=== PATIENT | female | born 1980 | race American Indian/Alaskan Native ===

== ENCOUNTER 2019-04-08 19:42 | Emergency (ER) | payer SELFPAY ==
[2019-04-08 20:06] VITALS: BP 118/68
[2019-04-08] MEDS ORDERED: IBUPROFEN PO ONE (20:08)
--- NOTE | 2019-04-08 20:08 | Event Note ---
ED Screening Note ED Screening Note: lower molar pain was suppose to have pulled pmh none rx none psh none lmp 8-12 This initial assessment/diagnostic orders/clinical plan/treatment(s) is/are subject to change based on patients health status, clinical progression and re- assessment by fellow clinical providers in the ED. Further treatment and workup at subsequent clinical providers discretion. Patient/guardian urged not to elope from the ED as their condition may be serious if not clinically assessed and managed. Initial orders include: ACC
[2019-04-08] MEDS ORDERED: IBUPROFEN ONE (22:18)
--- NOTE | 2019-04-08 22:23 | Emergency Department Report ---
ED ENT HPI - General Chief complaint: Dental/Oral Stated complaint: TOOTHACHE Time Seen by Provider: 04/08/19 20:06 Source: patient Mode of arrival: Ambulatory Limitations: No Limitations - History of Present Illness Initial comments: pt is a 38 y/o aaf with hx of dental pain who presents for dental pain x 1 week pt denies fever or chills no n/v no throat or ear pain, symptoms exacerbated by po intake hot and cold stimuli, relieved by nothing. MD complaint: tooth pain Location: tooth # (27) Severity: moderate Severity scale (0 -10): 5 Quality: aching Consistency: constant Improves with: none Worsens with: eating Context- Dental: poor dental care Associated Symptoms: toothache - Related Data Previous Rx's Medication Instructions Recorded Last Taken Type Amoxicillin [Trimox CAP] 500 mg PO Q8H 10 Days #30 capsule 04/08/19 Unknown Rx Chlorhexidine Mouthwash [Peridex] 15 ml MM BID #1 bottle 04/08/19 Unknown Rx traMADol [Ultram] 50 mg PO Q6HR PRN #12 tablet 04/08/19 Unknown Rx Allergies Allergy/AdvReac Type Severity Reaction Status Date / Time No Known Allergies Allergy Verified 04/08/19 20:08 ED Dental HPI - General Chief complaint: Dental/Oral Stated complaint: TOOTHACHE Time Seen by Provider: 04/08/19 20:06 Source: patient Mode of arrival: Ambulatory Limitations: No Limitations - Related Data Previous Rx's Medication Instructions Recorded Last Taken Type Amoxicillin [Trimox CAP] 500 mg PO Q8H 10 Days #30 capsule 04/08/19 Unknown Rx Chlorhexidine Mouthwash [Peridex] 15 ml MM BID #1 bottle 04/08/19 Unknown Rx traMADol [Ultram] 50 mg PO Q6HR PRN #12 tablet 04/08/19 Unknown Rx Allergies Allergy/AdvReac Type Severity Reaction Status Date / Time No Known Allergies Allergy Verified 04/08/19 20:08 ED Review of Systems ROS: Stated complaint: TOOTHACHE Other details as noted in HPI Constitutional: denies: chills, fever Eyes: denies: eye pain, eye discharge, vision change ENT: dental pain. denies: ear pain, throat pain Respiratory: denies: cough, shortness of breath, wheezing Cardiovascular: denies: chest pain, palpitations Endocrine: no symptoms reported Gastrointestinal: as per HPI Genitourinary: denies: urgency, dysuria, discharge Musculoskeletal: denies: back pain, joint swelling, arthralgia Skin: denies: rash, lesions Neurological: denies: headache, weakness, paresthesias Psychiatric: denies: anxiety, depression Hematological/Lymphatic: as per HPI ED Past Medical Hx - Past Medical History Previous Medical History?: No - Surgical History Past Surgical History?: Yes Additional Surgical History: - Social History Smoking Status: Never Smoker Substance Use Type: None - Medications Home Medications: Home Medications Medication Instructions Recorded Confirmed Last Taken Type Amoxicillin [Trimox CAP] 500 mg PO Q8H 10 Days #30 capsule 04/08/19 Unknown Rx Chlorhexidine Mouthwash [Peridex] 15 ml MM BID #1 bottle 04/08/19 Unknown Rx traMADol [Ultram] 50 mg PO Q6HR PRN #12 tablet 04/08/19 Unknown Rx ED Physical Exam - General Limitations: No Limitations General appearance: alert, in no apparent distress - Head Head exam: Present: atraumatic, normocephalic - Eye Eye exam: Present: normal appearance, PERRL, EOMI Pupils: Present: normal accommodation - ENT ENT exam: Present: mucous membranes moist, TM's normal bilaterally, normal external ear exam - Expanded ENT Exam Expanded Teeth exam: Present: dental caries, dental tenderness # (27) Throat exam: Positive: normal inspection, other (uvula midline no exudate no lesions no swelling no peritonsilar abscess ). Negative: tonsillar erythema, tonsillomegaly, tonsillar exudate, R peritonsillar mass, L peritonsillar mass - Neck Neck exam: Present: normal inspection, full ROM. Absent: tenderness, meningismus, lymphadenopathy, thyromegaly - Respiratory Respiratory exam: Present: normal lung sounds bilaterally. Absent: respiratory distress, wheezes, stridor, chest wall tenderness - Cardiovascular Cardiovascular Exam: Present: regular rate, normal rhythm, normal heart sounds. Absent: systolic murmur, diastolic murmur, rubs, gallop - GI/Abdominal GI/Abdominal exam: Present: soft, normal bowel sounds. Absent: distended, tenderness, guarding, rebound, rigid, bruit, hernia - Rectal Rectal exam: Present: deferred - Extremities Exam Extremities exam: Present: normal inspection, full ROM, normal capillary refill. Absent: tenderness - Back Exam Back exam: Present: normal inspection, full ROM. Absent: tenderness, CVA tenderness (R), CVA tenderness (L), muscle spasm, rash noted - Neurological Exam Neurological exam: Present: alert, oriented X3, CN II-XII intact, normal gait - Psychiatric Psychiatric exam: Present: normal affect, normal mood - Skin Skin exam: Present: warm, dry, intact, normal color. Absent: rash ED Course Vital Signs 04/08/19 20:05 Temperature 98.7 F Pulse Rate 77 Respiratory 16 Rate Blood Pressure 118/68 O2 Sat by Pulse 100 Oximetry ED Medical Decision Making - Medical Decision Making This is dental carries plan, amoxicillin, ultram, peridex follow up with dentist in 2-3 days return to emergency if symptoms worsen, pt verbalzied agreement and understandinf of same. Critical care attestation.: If time is entered above; I have spent that time in minutes in the direct care of this critically ill patient, excluding procedure time. ED Disposition Clinical Impression: Infected dental carries Disposition: TO HOME OR SELFCARE Is pt being admited?: No Does the pt Need Aspirin: No Condition: Stable Instructions: Dental Caries (ED) Prescriptions: Chlorhexidine Mouthwash [Peridex] 15 ml MM BID #1 bottle Amoxicillin [Trimox CAP] 500 mg PO Q8H 10 Days #30 capsule traMADol [Ultram] 50 mg PO Q6HR PRN #12 tablet PRN Reason: Pain Referrals: PATRICIA AMOR MD [Primary Care Provider] - 3-5 Days [facility] [Outside] - 3-5 Days Forms: Work/School Release Form(ED) Time of Disposition: 22:28
== END 2019-04-08 23:00 | disposition home or self-care (01) ==
LOC: ED 19:42
DX: K02.9 Dental caries, unspecified (principal)
CPT/HCPCS: 99282

== ENCOUNTER 2019-05-03 08:56 | Emergency (ER) | payer SELFPAY ==
[2019-05-03 09:18] VITALS: BP 116/70
[2019-05-03] MEDS ORDERED: TORADOL IV ONE (09:18)
[2019-05-03] MEDS ORDERED: BENADRYL IV ONE (09:18)
[2019-05-03] MEDS ORDERED: ZOFRAN IV ONE (09:18)
--- NOTE | 2019-05-03 09:35 | Emergency Department Report ---
ED Headache HPI - General Chief Complaint: Headache Stated Complaint: N/V Time Seen by Provider: 05/03/19 09:18 Source: patient Exam Limitations: no limitations - History of Present Illness Initial Comments: 38-year-old female with a history of migraines presents with worsening migraine that began last night is not getting better. She denies nausea vomiting and blurred vision or urinary symptoms. Patient states she does get occasional migraine headaches. She denies any trauma Timing/Duration: 24 hours Quality: moderate Head Injury Location: frontal, temporal Recent Head Trauma: no recent headache/trauma, occasional headaches, other (history of migraine headaches) Modifying Factors: improves with: immobilization. worse with: exposure to light Associated Symptoms: denies: confusion, fatigue, facial pain, nasal congestion, nasal drainage, stiff neck Allergies/Adverse Reactions: Allergies No Known Allergies Allergy (Verified 04/08/19 20:08) Home Medications: Ambulatory Orders Amoxicillin [Trimox CAP] 500 mg PO Q8H 10 Days #30 capsule 04/08/19 Chlorhexidine Mouthwash [Peridex] 15 ml MM BID #1 bottle 04/08/19 traMADol [Ultram] 50 mg PO Q6HR PRN #12 tablet 04/08/19 Ibuprofen [Motrin] 800 mg PO Q8HR #30 tablet 05/03/19 Prochlorperazine [Compazine] 10 mg PO Q8HR #30 tablet 05/03/19 ED Review of Systems ROS: Stated complaint: N/V Other details as noted in HPI Comment: All other systems reviewed and negative ED Past Medical Hx - Past Medical History Previous Medical History?: Yes Hx Headaches / Migraines: Yes - Surgical History Past Surgical History?: Yes Additional Surgical History: - Social History Smoking Status: Never Smoker Substance Use Type: None - Medications Home Medications: Home Medications Medication Instructions Recorded Confirmed Last Taken Type Amoxicillin [Trimox CAP] 500 mg PO Q8H 10 Days #30 capsule 04/08/19 Unknown Rx Chlorhexidine Mouthwash [Peridex] 15 ml MM BID #1 bottle 04/08/19 Unknown Rx traMADol [Ultram] 50 mg PO Q6HR PRN #12 tablet 04/08/19 Unknown Rx Ibuprofen [Motrin] 800 mg PO Q8HR #30 tablet 05/03/19 Unknown Rx Prochlorperazine [Compazine] 10 mg PO Q8HR #30 tablet 05/03/19 Unknown Rx ED Physical Exam - General Limitations: No Limitations General appearance: alert, in no apparent distress - Head Head exam: Present: atraumatic, normocephalic - Eye Eye exam: Present: normal appearance - ENT ENT exam: Present: mucous membranes moist - Neck Neck exam: Present: normal inspection - Respiratory Respiratory exam: Present: normal lung sounds bilaterally. Absent: respiratory distress - Cardiovascular Cardiovascular Exam: Present: regular rate, normal rhythm. Absent: systolic murmur, diastolic murmur, rubs, gallop - GI/Abdominal GI/Abdominal exam: Present: soft, normal bowel sounds - Extremities Exam Extremities exam: Present: normal inspection - Back Exam Back exam: Present: normal inspection - Neurological Exam Neurological exam: Present: alert, oriented X3 - Expanded Neurological Exam Expanded Speech: Present: fluid speech, expressive aphasia Cerebellar function: Finger to Nose: Normal Motor strength exam: RUE: 5, LUE: 5, RLE: 5, LLE: 5 Best Eye Response ([employer]): (4) open spontaneously Best Motor Response ([employer]): (6) obeys commands Best Verbal Response ([employer]): (5) oriented [employer] Total: 15 - Psychiatric Psychiatric exam: Present: normal affect, normal mood - Skin Skin exam: Present: warm, dry, intact, normal color. Absent: rash ED Course Vital Signs 05/03/19 08:57 Temperature 98.4 F Pulse Rate 78 Respiratory 18 Rate Blood Pressure 116/70 O2 Sat by Pulse 97 Oximetry ED Medical Decision Making - Medical Decision Making 38-year-old female presents with migraine headache. Patient received IV Toradol images and Zofran ODT. Patient states headache is relieved. Discussed to follow up with primary care physician. Patient had no neurological symptoms in the ED or neuro deficit. Vital signs are normal patient is in no acute distress Critical care attestation.: If time is entered above; I have spent that time in minutes in the direct care of this critically ill patient, excluding procedure time. ED Disposition Clinical Impression: Migraine headache without aura Disposition: DC-01 TO HOME OR SELFCARE Is pt being admited?: No Does the pt Need Aspirin: No Condition: Stable Instructions: Acute Headache (ED), Migraine Headache (ED) Additional Instructions: Make sure to follow up with the primary care physician as discussed. Take all your medications as you've been prescribed. If you have any worsening symptoms or develop new symptoms please return to ED immediately. Prescriptions: Prochlorperazine [Compazine] 10 mg PO Q8HR #30 tablet Ibuprofen [Motrin] 800 mg PO Q8HR #30 tablet Referrals: PRIMARY CARE, [Primary Care Provider] - 3-5 Days [facility] [Outside] - 3-5 Days [facility] [Outside] - 3-5 Days [facility] [Outside] - 3-5 Days Forms: Accompanied Note, Work/School Release Form(ED) Time of Disposition: 10:24
== END 2019-05-03 10:38 | disposition home or self-care (01) ==
LOC: ED 08:56
DX: G43.001 Migraine without aura, not intractable, with status migrainosus (principal); Z79.899 Other long term (current) drug therapy; Z79.1 Long term (current) use of non-steroidal anti-inflammatories (NSAID)
CPT/HCPCS: 96374; 96375; 99283; J1200; J1885; J2405

== ENCOUNTER 2020-04-03 20:45 | Emergency (ER) | payer SELFPAY ==
--- NOTE | 2020-04-03 20:50 | Event Note ---
ED Screening Note ED Screening Note: co headache frontal no trauma light hurts eyes nausea pmh migraine rx none no c/e/d lmp end February neuro intact moaning This initial assessment/diagnostic orders/clinical plan/treatment(s) is/are subject to change based on patients health status, clinical progression and re- assessment by fellow clinical providers in the ED. Further treatment and workup at subsequent clinical providers discretion. Patient/guardian urged not to elope from the ED as their condition may be serious if not clinically assessed and managed. Initial orders include: CT ACC for rx
[2020-04-03] MEDS ORDERED: ONDANSETRON 4 MG ODT TAB PO ONE ×2 (21:25→23:38)
[2020-04-03] MEDS ORDERED: ONDANSETRON 4 MG ODT TAB ONE (21:35)
--- NOTE | 2020-04-03 21:44 | Cat Scan Report ---
CT HEAD WITHOUT CONTRAST INDICATION / CLINICAL INFORMATION: headache. TECHNIQUE: All CT scans at this location are performed using CT dose reduction for ALARA by means of automated e xposure control. COMPARISON: None available. FINDINGS: HEMORRHAGE: No evidence of intracranial hemorrhage or extra-axial fluid collection. EXTRA-AXIAL SPACES: Cortical sulci, sylvian fissures and basilar cisterns have an unremarkable appear ance. VENTRICULAR SYSTEM: The ventricular system is of normal size and configuration. CEREBRAL PARENCHYMA: No areas of abnormal brain parenchymal attenuation are identified. There is no i ndication of recent infarction. MIDLINE SHIFT OR HERNIATION: There is no mass effect. CEREBELLUM / BRAINSTEM: Brainstem and cerebellum have an unremarkable appearance. MIDLINE STRUCTURES:No abnormalities of the pituitary gland or pineal region are identified. INTRACRANIAL VESSELS:No abnormalities are identified on this noncontrast head CT. ORBITS: visualized portions of the orbits have an unremarkable appearance. SOFT TISSUES of HEAD: No significant abnormality. CALVARIUM: Evaluation of bone windows reveals no abnormalities. PARANASAL SINUSES / MASTOID AIR CELLS: Paranasal sinuses are free from inflammatory mucosal disease. Mastoid air cells are normally pneumatized. IMPRESSION: 1. No acute intracranial abnormality. Signer Name: Mikel Sharpe MD Signed: 04/03/2020 9:40 PM Workstation Name: [id number]
[2020-04-03] MEDS ORDERED: BUTALB/ACETAMINOPHEN/CAFFEINE TAB PO ONE (23:38)
[2020-04-03] MEDS ORDERED: KETOROLAC 30 MG/1 ML INJ IM ONE (23:38)
[2020-04-03 23:41] VITALS: BP 126/85
--- NOTE | 2020-04-03 23:43 | Emergency Department Report ---
ED Headache HPI - General Chief Complaint: Headache Stated Complaint: MIGRAINE Time Seen by Provider: 04/03/20 20:51 Source: patient, RN notes reviewed Exam Limitations: no limitations - History of Present Illness Initial Comments: Patient is a 39-year-old -[place] female with a history of chronic migraine headaches who presents to the ED with complaint of acute onset p ersistent frontal sinus pressure and headache with lightheadedness and nausea for the last 24 hours. Patient states that this headaches are typical of her chronic migraine headaches and that she has not taken any medications to help alleviate the headache. Patient denies dizziness, syncope, chest pain, shortness of breath, fever, chills, cough, sore throat, nasal and sinus congestion, change in vision, neck pain, back pain, traumatic injury or fall, dysuria and urinary frequency and urgency. Timing/Duration: 24 hours Quality: severe, pressure, sharp Head Injury Location: frontal Recent Head Trauma: no recent headache/trauma Associated Symptoms: denies symptoms, fatigue. denies: confusion, fever/chills, flushing, nausea/vomiting, nasal congestion, nasal drainage, numbness in legs/feet, seizures, sinus infection, stiff neck, vision changes, other Allergies/Adverse Reactions: Allergies No Known Allergies Allergy (Verified 04/08/19 20:08) Home Medications: Ambulatory Orders Amoxicillin [Trimox CAP] 500 mg PO Q8H 10 Days #30 capsule 04/08/19 Chlorhexidine Mouthwash [Peridex] 15 ml MM BID #1 bottle 04/08/19 traMADoL [Ultram] 50 mg PO Q6HR PRN #12 tablet 04/08/19 Ibuprofen [Motrin] 800 mg PO Q8HR #30 tablet 05/03/19 Prochlorperazine [Compazine] 10 mg PO Q8HR #30 tablet 05/03/19 Amoxicillin [Trimox CAP] 500 mg PO Q8H #30 capsule 04/03/20 Butalb/Acetamin/Caff 50-325-40 [Fioricet 50-325-40] 1 - 2 tab PO Q6HR PRN #15 tab 04/03/20 Ketorolac [Toradol] 10 mg PO Q8H PRN #20 tablet 04/03/20 Ondansetron [Zofran Odt] 4 mg PO Q6HR PRN #15 tab.rapdis 04/03/20 ED Review of Systems ROS: Stated complaint: MIGRAINE Other details as noted in HPI Constitutional: malaise. denies: chills, fever Eyes: denies: eye pain, eye discharge, vision change ENT: denies: ear pain, throat pain Respiratory: denies: cough, shortness of breath, SOB with exertion, SOB at rest, wheezing Cardiovascular: denies: chest pain, palpitations Endocrine: no symptoms reported Gastrointestinal: denies: abdominal pain, nausea, diarrhea Genitourinary: denies: urgency, dysuria, frequency, discharge Musculoskeletal: denies: back pain, joint swelling, arthralgia Skin: denies: rash, lesions Neurological: headache. denies: weakness, paresthesias Psychiatric: denies: anxiety, depression Hematological/Lymphatic: denies: easy bleeding, easy bruising ED Past Medical Hx - Past Medical History Previous Medical History?: Yes Hx Headaches / Migraines: Yes - Surgical History Additional Surgical History: - Social History Smoking Status: Never Smoker Substance Use Type: None - Medications Home Medications: Home Medications Medication Instructions Recorded Confirmed Last Taken Type Amoxicillin [Trimox CAP] 500 mg PO Q8H 10 Days #30 capsule 04/08/19 Unknown Rx Chlorhexidine Mouthwash [Peridex] 15 ml MM BID #1 bottle 04/08/19 Unknown Rx traMADoL [Ultram] 50 mg PO Q6HR PRN #12 tablet 04/08/19 Unknown Rx Ibuprofen [Motrin] 800 mg PO Q8HR #30 tablet 05/03/19 Unknown Rx Prochlorperazine [Compazine] 10 mg PO Q8HR #30 tablet 05/03/19 Unknown Rx Amoxicillin [Trimox CAP] 500 mg PO Q8H #30 capsule 04/03/20 Unknown Rx Butalb/Acetamin/Caff 50-325-40 1 - 2 tab PO Q6HR PRN #15 tab 04/03/20 Unknown Rx [Fioricet 50-325-40] Ketorolac [Toradol] 10 mg PO Q8H PRN #20 tablet 04/03/20 Unknown Rx Ondansetron [Zofran Odt] 4 mg PO Q6HR PRN #15 tab.rapdis 04/03/20 Unknown Rx ED Physical Exam - General Limitations: No Limitations General appearance: alert, in no apparent distress - Head Head exam: Present: atraumatic, normocephalic, normal inspection - Eye Eye exam: Present: normal appearance, PERRL, EOMI Pupils: Present: normal accommodation - ENT ENT exam: Present: normal exam, normal orophraynx, mucous membranes moist, TM's normal bilaterally, normal external ear exam, other (Palpable frontal sinus tenderness) - Neck Neck exam: Present: normal inspection, full ROM - Respiratory Respiratory exam: Present: normal lung sounds bilaterally. Absent: respiratory distress, wheezes, rales, rhonchi, chest wall tenderness, accessory muscle use, decreased breath sounds - Cardiovascular Cardiovascular Exam: Present: regular rate, normal rhythm, normal heart sounds. Absent: systolic murmur, diastolic murmur, rubs, gallop - GI/Abdominal GI/Abdominal exam: Present: soft, normal bowel sounds. Absent: tenderness, guarding, hyperactive bowel sounds, hypoactive bowel sounds, mass - Extremities Exam Extremities exam: Present: normal inspection, full ROM, normal capillary refill - Back Exam Back exam: Present: normal inspection, full ROM. Absent: tenderness, CVA tenderness (R), CVA tenderness (L), muscle spasm, paraspinal tenderness - Neurological Exam Neurological exam: Present: alert, oriented X3, CN II-XII intact, normal gait, reflexes normal - Psychiatric Psychiatric exam: Present: normal affect, normal mood - Skin Skin exam: Present: warm, dry, intact, normal color. Absent: rash ED Medical Decision Making - Radiology Data Radiology results: report reviewed, image [place] [address] Cat Scan Report Signed Patient: PARAMJIT MAGANA MR#: [id number] : 1980 Acct:[id number] Age/Sex: 39 / F ADM Date: 04/03/20 Loc: ED Attending Dr: Ordering Physician: OG GUTIERREZ Date of Service: 04/03/20 Procedure(s): CT head/brain wo con Accession Number(s): [id number] cc: OG GUTIERREZ CT HEAD WITHOUT CONTRAST INDICATION / CLINICAL INFORMATION: headache. TECHNIQUE: All CT scans at this location are performed using CT dose reduction for ALARA by means of automated exposure control. COMPARISON: None available. FINDINGS: HEMORRHAGE: No evidence of intracranial hemorrhage or extra-axial fluid collection. EXTRA-AXIAL SPACES: Cortical sulci, sylvian fissures and basilar cisterns have an unremarkable appearance. VENTRICULAR SYSTEM: The ventricular system is of normal size and configuration. CEREBRAL PARENCHYMA: No areas of abnormal brain parenchymal attenuation are identified. There is no indication of recent infarction. MIDLINE SHIFT OR HERNIATION: There is no mass effect. CEREBELLUM / BRAINSTEM: Brainstem and cerebellum have an unremarkable appearance. MIDLINE STRUCTURES:No abnormalities of the pituitary gland or pineal region are identified. INTRACRANIAL VESSELS:No abnormalities are identified on this noncontrast head CT. ORBITS: visualized portions of the orbits have an unremarkable appearance. SOFT TISSUES of HEAD: No significant abnormality. CALVARIUM: Evaluation of bone windows reveals no abnormalities. PARANASAL SINUSES / MASTOID AIR CELLS: Paranasal sinuses are free from inflammatory mucosal disease. Mastoid air cells are normally pneumatized. IMPRESSION: 1. No acute intracranial abnormality. Signer Name: Mikel Sharpe MD Signed: 04/03/2020 9:40 PM Workstation Name: [id number] Transcribed By: Dictated By: Mikel Sharpe MD Electronically Authenticated By: Mikel Sharpe MD Signed Date/Time: 04/03/202139 DD/ 37 TD/TT: - Medical Decision Making This is a 39-year-old -[place] female with a history of chronic migraine headaches who presents to the ED with complaint of acute onset persistent frontal sinus pressure and headache with lightheadedness and nausea for the last 24 hours. Patient states that this headaches are typical of her chronic migraine headaches and that she has not taken any medications to help alleviate the headache. In the ED, patient is alert and oriented x3 and is not in distress with normal vital signs. Head CT scan without contrast showed no acute intracranial abnormalities or hemorrhage. Patient was treated for pain in the ED and on reevaluation, patient's pain is well controlled medications. Patient was discharged home on medications and advised to follow-up with her primary care physician in 5 to 7 days for reevaluation or return to the ED immediately if symptoms get worse. - Differential Diagnosis migraine headache; Sinusitis; Sinus headache; Tension headache; dehydration Critical care attestation.: If time is entered above; I have spent that time in minutes in the direct care of this critically ill patient, excluding procedure time. ED Disposition Clinical Impression: Sinus headache, Light-headedness Migraine headache without aura Qualifiers: Status migrainosus presence: without status migrainosus Intractability: not intractable Qualified Code(s): G43.009 - Migraine without aura, not intractable, without status migrainosus Disposition: TO HOME OR SELFCARE Is pt being admited?: No Does the pt Need Aspirin: No Condition: Stable Instructions: Sinusitis (ED), Migraine Headache (ED) Additional Instructions: Take medication with food, drink plenty of fluids and follow-up with your primary care physician in 5 to 7 days for reevaluation. Return to the ED immediately if symptoms get worse. Prescriptions: Butalb/Acetamin/Caff 50-325-40 [Fioricet 50-325-40] 1 - 2 tab PO Q6HR PRN #15 tab PRN Reason: Headache Ketorolac [Toradol] 10 mg PO Q8H PRN #20 tablet PRN Reason: Pain Amoxicillin [Trimox CAP] 500 mg PO Q8H #30 capsule Ondansetron [Zofran Odt] 4 mg PO Q6HR PRN #15 tab.rapdis PRN Reason: Nausea Referrals: [facility] [Provider Group] - 3-5 Days Time of Disposition: 23:46 Print Language: NIUEAN
[2020-04-04 00:34] LABS: HCG Qualitative,Urine Negative (Negative)
[2020-04-04 00:35] LABS: Bacteria,Urine 4+ /HPF (Negative); Bilirubin,Urine NEG (Negative); Blood,Urine SM (Negative); Color,Urine Yellow (Yellow); Mucus,Urine 1+ /HPF; Protein,Urine <15 mg/dL mg/dL (Negative)
== END 2020-04-04 00:30 | disposition home or self-care (01) ==
LOC: ED 20:45
DX: G43.009 Migraine without aura, not intractable, without status migrainosus (principal); Z79.1 Long term (current) use of non-steroidal anti-inflammatories (NSAID); Z79.2 Long term (current) use of antibiotics; Z79.899 Other long term (current) drug therapy
CPT/HCPCS: 70450; 81001; 81025; 96372; 99284; J1885; Q0162